=== PATIENT | male | born 1985 | race Caucasian/White ===

== ENCOUNTER 2017-10-08 20:54 | Emergency (ER) | payer SELFPAY, MEDICAID | END 2017-10-09 03:48 | disposition left against medical advice (07) | LOC: FTE 20:54 | DX: Z53.21 Procedure and treatment not carried out due to patient leaving prior to being seen by health care provider (principal) ==

== ENCOUNTER 2018-05-24 17:13 | Emergency (ER) | payer MEDICAID | END 2018-05-24 21:16 | disposition home or self-care (01) | LOC: FTE 17:13 | DX: H57.8 Other specified disorders of eye and adnexa (principal) | CPT/HCPCS: 99284; Z7502 ==

== ENCOUNTER 2018-08-05 14:17 | Emergency (ER) | payer SELFPAY, MEDICAID ==
[2018-08-05] MEDS: ACETAMINOPHEN 500 MG TAB PO (15:13)
[2018-08-05] MEDS: IBUPROFEN 600 MG TAB PO (15:13)
== END 2018-08-05 16:13 | disposition home or self-care (01) ==
LOC: FTE 14:17
DX: S70.02XA Contusion of left hip, initial encounter (principal); S70.212A Abrasion, left hip, initial encounter; E03.9 Hypothyroidism, unspecified; V23.4XXA Motorcycle driver injured in collision with car, pick-up truck or van in traffic accident, initial encounter
CPT/HCPCS: 73510; 99283-25